=== PATIENT | female | born 2000 | race Two or more races ===

== ENCOUNTER 2019-02-05 17:44 | Emergency (ER) | payer SELFPAY ==
[~2019-02-05] VITALS: Ht 162.6 cm; Wt 59.0 kg
[2019-02-05 19:10] LABS: BASOPHILS % 0.3 % (0.0-2.0); EOSINOPHILS % 1.5 % (0.0-5.0); LYMPHOCYTES % 28.9 % (20.0-50.0); MEAN CORPUSCULAR HEMOGLOBIN 28.7 pg (28.0-32.0); MEAN CORPUSCULAR VOLUME 86.5 fL (81.0-99.0); MEAN PLATELET VOLUME 8.2 fl (7.4-10.4); NEUTROPHILS % 64.3 % (40.0-76.0); PLATELET 289 x1000/uL (130-400); RED BLOOD CELL COUNT 4.51 mill/uL (4.2-5.4); RED CELL DISTRIBUTION WIDTH 13.7 % (11.6-14.6)
[2019-02-05 19:15] LABS: CHLORIDE 107 mEq/L (98-107)
[2019-02-05 19:18] LABS: HCG SCREEN NEGATIVE
[2019-02-05 20:47] VITALS: BP 129/72
== END 2019-02-05 20:53 | disposition home or self-care (01) ==
LOC: ER 17:44
DX: R00.2 Palpitations (principal); R07.89 Other chest pain; F41.9 Anxiety disorder, unspecified; J45.909 Unspecified asthma, uncomplicated; R01.1 Cardiac murmur, unspecified
CPT/HCPCS: 36415; 81025; 83880; 84484; 84703; 85379; 93005; 99284